=== PATIENT | female | born 1985 | race Caucasian/White ===

== ENCOUNTER 2016-06-30 15:50 | Emergency (ER) | payer SELFPAY ==
[~2016-06-30] VITALS: Ht 154.9 cm; Wt 171.0 kg
[~2016-06-30 15:50] MED LIST: ZOFR4TAB PO
[2016-06-30 15:53] VITALS: BP 157/100; PULSE 82; RESP 17; TEMP 98.3; O2SAT 97
[2016-06-30] MEDS ORDERED: SODIUM CHLOR 0.9% 1000 ML INJ 1,000 ML IV ONE (16:02)
[2016-06-30 16:07] VITALS: RESP 16; O2SAT 98
--- NOTE | 2016-06-30 16:08 | PD ---
HPI Chief Complaint: Headache Time Seen by Provider: 16:02 Travel History International Travel<30 days: No Contact w/Intl Traveler<30days: No Traveled to known affect area: No History of Present Illness HPI 31-year-old female presents to the ER today with 1 week history of headaches, cough, cold symptoms, nausea, and diarrhea. She denies any neck stiffness, fevers, abdominal pains, or any other issues. She states that there is something going around work, multiple coworkers had similar symptoms. Patient does not know any exacerbating or alleviating factors for headaches but states that her headache is currently an 8 out of 10. Modifying Factors: None Associated Signs & Symptoms: Headaches, nausea, diarrhea, cold symptoms, cough Risk Factors: Sick contacts PFSH Past Medical History Heart Rhythm Problems: No Cardiovascular Problems: No Diabetes: No Diminished Hearing: No Gastrointestinal Disorders: Yes ("BAD GALLBLADDER" ) Headaches: Yes Musculoskeletal: Yes Neurologic: No Reproductive: Yes (MASTITIS: AGE 17) Respiratory: No Immunizations Current: No Migraines: Yes ?: Not : 0 Para: 0 Past Surgical History Cholecystectomy: Yes Oral Surgery: Yes (AGE 10) Other Surgery: No Social History Alcohol Use: Yes (Occ.) Tobacco Use: Yes (1/2 PPD) Substance Use: No Allergies-Medications (Allergen,Severity, Reaction): Coded Allergies: No Known Allergies (Verified , 06/30/16) Reported Meds & Prescriptions Reported Meds & Active Scripts Active No Active Prescriptions or Reported Medications Review of Systems Except as stated in HPI: all other systems reviewed are Neg Physical Exam Narrative GENERAL: Well-nourished, well-developed obese young white female patient in no acute distress. Awake, alert, oriented 3. Sitting and related without issues. SKIN: Warm and dry. HEAD: Normocephalic. EYES: No scleral icterus. No injection or drainage. NECK: Supple, trachea midline. CARDIOVASCULAR: Regular rate and rhythm without murmurs, gallops, or rubs. RESPIRATORY: Breath sounds equal bilaterally. No accessory muscle use. GASTROINTESTINAL: Abdomen soft, non-tender, nondistended. MUSCULOSKELETAL: No cyanosis, or edema. BACK: Nontender without obvious deformity. No CVA tenderness. Data Data Last Documented VS Vital Signs Date Time Temp Pulse Resp B/P Pulse Ox O2 Delivery O2 Flow Rate FiO2 06/30/16 16:30 66 16 138/75 99 Room Air 2/11/17 15:53 98.3 Orders Complete Blood Count With Diff (06/30/16 16:02) Comprehensive Metabolic Panel (06/30/16 16:02) Ecg Monitoring (06/30/16 16:02) Iv Access Insert/Monitor (06/30/16 16:02) Oximetry (06/30/16 16:02) Sodium Chloride 0.9% Flush (Ns Flush) (06/30/16 16:15) Ketorolac Inj (Toradol Inj) (06/30/16 16:15) Diphenhydramine Inj (Benadryl Inj) (06/30/16 16:15) Metoclopramide Inj (Reglan Inj) (06/30/16 16:15) Sodium Chlor 0.9% 1000 Ml Inj (Ns 1000 M (06/30/16 16:02) Influenzae A/B Antigen (06/30/16 16:02) Ed Urine Pregnancytest Poc (06/30/16 16:02) Labs Laboratory Tests Test 06/30/16 16:20 White Blood Count 10.8 TH/MM3 Red Blood Count 4.99 MIL/MM3 Hemoglobin 13.6 GM/DL Hematocrit 41.5 % Mean Corpuscular Volume 83.1 FL Mean Corpuscular Hemoglobin 27.4 PG Mean Corpuscular Hemoglobin 32.9 % Concent Red Cell Distribution Width 12.5 % Platelet Count 401 TH/MM3 Mean Platelet Volume 7.3 FL Neutrophils (%) (Auto) 62.3 % Lymphocytes (%) (Auto) 26.1 % Monocytes (%) (Auto) 5.4 % Eosinophils (%) (Auto) 5.0 % Basophils (%) (Auto) 1.2 % Neutrophils # (Auto) 6.8 TH/MM3 Lymphocytes # (Auto) 2.8 TH/MM3 Monocytes # (Auto) 0.6 TH/MM3 Eosinophils # (Auto) 0.5 TH/MM3 Basophils # (Auto) 0.1 TH/MM3 CBC Comment DIFF FINAL Differential Comment Sodium Level 142 MEQ/L Potassium Level 4.2 MEQ/L Chloride Level 109 MEQ/L Carbon Dioxide Level 24.0 MEQ/L Anion Gap 9 MEQ/L Blood Urea Nitrogen 8 MG/DL Creatinine 0.72 MG/DL Estimat Glomerular Filtration 96 ML/MIN Rate Random Glucose 129 MG/DL Calcium Level 8.6 MG/DL Total Bilirubin 0.4 MG/DL Aspartate Amino Transf 28 U/L (AST/SGOT) Alanine Aminotransferase 20 U/L (ALT/SGPT) Alkaline Phosphatase 61 U/L Total Protein 7.1 GM/DL Albumin 3.1 GM/DL MDM Medical Decision Making Medical Screen Exam Complete: Yes Emergency Medical Condition: Yes Medical Record Reviewed: Yes Interpretation(s) Laboratory Tests Test 06/30/16 16:20 Eosinophils (%) (Auto) 5.0 % (0.0-4.0) Eosinophils # (Auto) 0.5 TH/MM3 (0-0.4) Chloride Level 109 MEQ/L (98-107) Random Glucose 129 MG/DL (74-106) Albumin 3.1 GM/DL (3.4-5.0) Differential Diagnosis Headache, nausea, diarrhea, cough, cold symptomsviral syndrome/viral gastroenteritis versus migraine headaches versus dehydration versus metabolic issues versus meningitis Narrative Course Patient does not have any meningeal signs and I'm not concerned about meningitis in this case. IV fluids and anti-medics were initiated in the ER. Lab work did not indicate any significant dehydration or metabolic issues. She is influenza-negative. She has several sick contacts at work and I suspect that there may be an underlying viral syndrome which is being passed around at work. On reevaluation at 4:50 PM, patient is feeling improved and my plan would be at this point to release the patient with further symptomatic treatment for headache and nausea. Return for any worsening in symptoms as necessary. The plan has been discussed with the patient and she states understanding. Diagnosis Primary Impression: Viral syndrome Med/Other Pt SpecificInfo: Prescription(s) given Scripts Ondansetron Odt (Zofran Odt)4 Mg Tab4 Mg SL Q6HR PRN (Nausea/Vomiting) #5 TAB Ref 0 Prov:Chayo Beard MD 06/30/16 Ibuprofen (Motrin Ib)200 Mg Feq240 Mg PO Q6H PRN (PAIN SCALE 1 TO 10) #20 TAB Ref 0 Prov:Chayo Beard MD 06/30/16 Disposition: 01 DISCHARGE HOME Condition: Stable Chayo Beard MD Jun 30, 2016 16:08
[2016-06-30] MEDS ORDERED: SODIUM CHLORIDE 0.9% FLUSH 5 ML FLUSH IVF PRN (16:15)
[2016-06-30] MEDS ORDERED: diphenhydrAMINE HCL 50 MG/ML VIAL IVP ONE (16:15)
[2016-06-30] MEDS ORDERED: KETOROLAC TROMETHAMINE 30 MG/ML (IVP) VIAL IVP ONE (16:15)
[2016-06-30] MEDS ORDERED: METOCLOPRAMIDE HCL 10 MG/2 ML VIAL IVP ONE (16:15)
[2016-06-30 16:25] LABS: AUTOMATED NEUTROPHIL # 6.8 TH/MM3 (1.8-7.7); BASOPHIL # 0.1 TH/MM3 (0-0.2); BASOPHIL % 1.2 % (0.0-2.0); EOSINOPHIL # 0.5 TH/MM3 (0-0.4); HEMATOCRIT 41.5 % (35.0-46.0); LYMPH % 26.1 % (9.0-44.0); LYMPHOCYTE # 2.8 TH/MM3 (1.0-4.8); MEAN CELL VOLUME 83.1 FL (80.0-100.0); MEAN CORPUSCULAR HEMOGLOBIN 27.4 PG (27.0-34.0); MEAN CORPUSCULAR HGB CONC 32.9 % (32.0-36.0); MONO % 5.4 % (0.0-8.0); NEUT % 62.3 % (16.0-70.0); PLATELET COUNT 401 TH/MM3 (150-450); RED BLOOD COUNT 4.99 MIL/MM3 (4.00-5.30); RED CELL DISTRIBUTION WIDTH 12.5 % (11.6-17.2); WHITE BLOOD COUNT 10.8 TH/MM3 (4.0-11.0)
[2016-06-30 16:30] VITALS: BP 138/75; PULSE 66; RESP 16; O2SAT 99
[2016-06-30 16:38] LABS: HEMO FLAGS DIFF FINAL
[2016-06-30 16:41] LABS: CHLORIDE 109 MEQ/L (98-107); SODIUM (NA) 142 MEQ/L (136-145)
[2016-06-30 16:44] LABS: ANION GAP 9 MEQ/L (5-15)
[2016-06-30 16:45] LABS: BLOOD UREA NITROGEN 8 MG/DL (7-18)
[2016-06-30 16:47] LABS: ALT (GPT) 20 U/L (10-53)
[2016-06-30 16:48] LABS: AST (GOT) 28 U/L (15-37); GLOMERULAR FILTRATION RATE 96 ML/MIN (>89)
[2016-06-30 16:49] LABS: POTASSIUM 4.2 MEQ/L (3.5-5.1); TOTAL BILIRUBIN ADULT 0.4 MG/DL (0.2-1.0)
[2016-06-30 16:50] LABS: ALKALINE PHOSPHATASE 61 U/L (45-117)
[2016-06-30] MEDS ORDERED: MOTR200T4 PO (16:58)
[2016-06-30] MEDS ORDERED: ZOFR4TAB3 SL (16:58)
[2016-06-30 17:33] VITALS: RESP 16
[2016-06-30 17:34] VITALS: BP 130/77
== END 2016-06-30 17:38 | disposition home or self-care (01) ==
LOC: PHED 15:50
DX: B34.9 Viral infection, unspecified (principal); R51 Headache; R11.0 Nausea; R19.7 Diarrhea, unspecified; R05 Cough; F17.200 Nicotine dependence, unspecified, uncomplicated; Z87.19 Personal history of other diseases of the digestive system; Z86.69 Personal history of other diseases of the nervous system and sense organs
CPT/HCPCS: 80053; 84703; 85025; 87804; 96361; 96374; 96375; 99284; J1200; J1885; J2765; J7030

== ENCOUNTER 2016-07-25 18:18 | Emergency (ER) | payer OTHER ==
[~2016-07-25] VITALS: Ht 154.9 cm; Wt 173.5 kg
[~2016-07-25 18:18] MED LIST changes: +MOTR200T4 PO; -ZOFR4TAB PO; +ZOFR4TAB3 SL
[2016-07-25 18:33] VITALS: BP 150/99; PULSE 82; RESP 18; TEMP 98.8; O2SAT 97
[2016-07-25] MEDS ORDERED: SODIUM CHLOR 0.9% 1000 ML INJ 1,000 ML IV SCH (18:57)
--- NOTE | 2016-07-25 18:59 | PD ---
HPI Chief Complaint: GI Complaint Time Seen by Provider: 18:53 Travel History International Travel<30 days: No Contact w/Intl Traveler<30days: No Traveled to known affect area: No History of Present Illness HPI 31-year-old female here for evaluation of abdominal pain, nausea, vomiting, and cough. The patient reports having nausea for the last month and a half. She tells me that she cannot be as she is abstinent. Abdominal pain is epigastric. Over the last week she has been more nauseous and has had vomiting and diarrhea. Earlier today she had a fever which resolved after taking a shower. Cough is productive of greenish sputum. History of cholecystectomy. No other abdominal surgeries. PFSH Past Medical History Heart Rhythm Problems: No Cardiovascular Problems: No Diabetes: No Diminished Hearing: No Gastrointestinal Disorders: Yes ("BAD GALLBLADDER" ) Headaches: Yes Musculoskeletal: Yes Neurologic: No Reproductive: Yes (MASTITIS: AGE 17) Respiratory: No Immunizations Current: No Migraines: Yes ?: Not : 0 Para: 0 Past Surgical History Cholecystectomy: Yes Oral Surgery: Yes (AGE 10) Other Surgery: No Social History Alcohol Use: Yes (Occ. wine) Tobacco Use: Yes (1/2 PPD) Substance Use: No Allergies-Medications (Allergen,Severity, Reaction): Coded Allergies: No Known Allergies (Verified , 07/25/16) Reported Meds & Prescriptions Reported Meds & Active Scripts Active Review of Systems Except as stated in HPI: all other systems reviewed are Neg Physical Exam Narrative GENERAL: Well-developed, well-nourished, overweight, comfortable, no acute distress. SKIN: Warm and dry. No rash. HEAD: Atraumatic. Normocephalic. EYES: Pupils equal and round. No scleral icterus. No injection or drainage. ENT: Mucous membranes pink and moist. CARDIOVASCULAR: Regular rate and rhythm. RESPIRATORY: No accessory muscle use. Clear to auscultation. Breath sounds equal bilaterally. GASTROINTESTINAL: Abdomen soft, non-tender, nondistended. MUSCULOSKELETAL: No obvious deformities. No clubbing. No cyanosis. No edema. NEUROLOGICAL: Awake and alert. No obvious cranial nerve deficits. Motor grossly within normal limits. Normal speech. PSYCHIATRIC: Appropriate mood and affect; insight and judgment normal. Data Data Last Documented VS Vital Signs Date Time Temp Pulse Resp B/P Pulse Ox O2 Delivery O2 Flow Rate FiO2 07/25/16 19:45 99 Room Air 07/25/16 18:33 98.8 82 18 150/99 Orders Beta Hcg (Quant/Titer) (07/25/16 18:57) Complete Blood Count With Diff (07/25/16 18:57) Comprehensive Metabolic Panel (07/25/16 18:57) Lipase (07/25/16 18:57) Urinalysis - C+S If Indicated (07/25/16 18:57) Iv Access Insert/Monitor (07/25/16 18:57) Ecg Monitoring (07/25/16 18:57) Oximetry (07/25/16 18:57) Ondansetron Inj (Zofran Inj) (07/25/16 19:00) Pantoprazole Inj (Protonix Inj) (07/25/16 19:00) Sodium Chlor 0.9% 1000 Ml Inj (Ns 1000 M (07/25/16 18:57) Sodium Chloride 0.9% Flush (Ns Flush) (07/25/16 19:00) Al-Mag Hy-Si 40-40-4 Mg/Ml Liq (Mag-Al P (07/25/16 19:00) Lidocaine 2% Viscous (Xylocaine 2% Visco (07/25/16 19:00) Influenzae A/B Antigen (07/25/16 18:59) Chest, Single Ap (07/25/16 ) Labs Laboratory Tests Test 07/25/16 07/25/16 19:14 19:40 White Blood Count 10.5 TH/MM3 Red Blood Count 5.17 MIL/MM3 Hemoglobin 14.2 GM/DL Hematocrit 42.8 % Mean Corpuscular Volume 82.8 FL Mean Corpuscular Hemoglobin 27.5 PG Mean Corpuscular Hemoglobin 33.2 % Concent Red Cell Distribution Width 12.4 % Platelet Count 376 TH/MM3 Mean Platelet Volume 7.3 FL Neutrophils (%) (Auto) 62.1 % Lymphocytes (%) (Auto) 23.3 % Monocytes (%) (Auto) 6.4 % Eosinophils (%) (Auto) 5.0 % Basophils (%) (Auto) 3.2 % Neutrophils # (Auto) 6.6 TH/MM3 Lymphocytes # (Auto) 2.4 TH/MM3 Monocytes # (Auto) 0.7 TH/MM3 Eosinophils # (Auto) 0.5 TH/MM3 Basophils # (Auto) 0.3 TH/MM3 CBC Comment DIFF FINAL Differential Comment Sodium Level 141 MEQ/L Potassium Level 3.7 MEQ/L Chloride Level 108 MEQ/L Carbon Dioxide Level 25.4 MEQ/L Anion Gap 8 MEQ/L Blood Urea Nitrogen 9 MG/DL Creatinine 0.67 MG/DL Estimat Glomerular Filtration 104 ML/MIN Rate Random Glucose 78 MG/DL Calcium Level 8.6 MG/DL Total Bilirubin 0.3 MG/DL Aspartate Amino Transf 14 U/L (AST/SGOT) Alanine Aminotransferase 23 U/L (ALT/SGPT) Alkaline Phosphatase 60 U/L Total Protein 7.3 GM/DL Albumin 3.2 GM/DL Lipase 97 U/L Human Chorionic Gonadotropin, LESS THAN 1 Quant MIU/ML Urine Color YELLOW Urine Turbidity CLEAR Urine pH 6.5 Urine Specific [place] 1.017 Urine Protein NEG mg/dL Urine Glucose (UA) NEG mg/dL Urine Ketones NEG mg/dL Urine Occult Blood MOD Urine Nitrite NEG Urine Bilirubin NEG Urine Leukocyte Esterase NEG Urine RBC 0-3 /hpf Urine WBC 6-8 /hpf Urine Squamous Epithelial 0-5 /hpf Cells Microscopic Urinalysis Comment CULT NOT INDICATED MDM Medical Decision Making Medical Screen Exam Complete: Yes Emergency Medical Condition: Yes Medical Record Reviewed: Yes Differential Diagnosis Gastroenteritis, viral illness, URI, influenza, dehydration, gastritis, peptic ulcer disease, pancreatitis Narrative Course Vital signs show heart rate 82, blood pressure 150/99, pulse ox 99% on room air , oral temp of 98.8F. CBC is unremarkable. CMP is unremarkable. Lipase is 97. Beta hCG is negative. UA not suggestive UTI. Influenza negative. Chest x-ray shows no acute disease. The patient was given IV Zofran and a liter of normal saline IV and reports much better. Her nausea has significantly improved. Her abdominal exam is benign. I believe she is suffering from a viral illness/gastroenteritis/URI. She is stable for discharge home with outpatient follow-up with a primary care physician this week. She was informed on when to return to the emergency department. She verbalizes understanding and agreement with plan. Diagnosis Primary Impression: Gastroenteritis Additional Impression: Viral syndrome Referrals: Primary Care Physician 3 days Additional Instructions: Follow-up with a primary care physician this week. Return to the emergency department for worsening symptoms or any other concerns. Scripts Ondansetron Odt (Zofran Odt)4 Mg Tab4 Mg SL Q8HR PRN (Nausea/Vomiting) #30 TAB Ref 0 Prov:Arnold Ann MD 07/25/16 Disposition: 01 DISCHARGE HOME Condition: Stable Arnold Ann MD Jul 25, 2016 18:59
[2016-07-25] MEDS ORDERED: PANTOPRAZOLE SODIUM 40 MG VIAL IVP ONE (19:00)
[2016-07-25] MEDS ORDERED: SODIUM CHLORIDE 0.9% FLUSH 5 ML FLUSH IVF PRN (19:00)
[2016-07-25] MEDS ORDERED: ONDANSETRON HCL 4 MG/2 ML VIAL IVP ONE (19:00)
[2016-07-25] MEDS ORDERED: ALUMINUM/MAGNESIUM/SIMETH 30 ML CUP PO ONE (19:00)
[2016-07-25] MEDS ORDERED: LIDOCAINE VISCOUS 2% SOLN 15 ML UDC PO ONE (19:00)
[2016-07-25 19:24] LABS: AUTOMATED NEUTROPHIL # 6.6 TH/MM3 (1.8-7.7); BASOPHIL # 0.3 TH/MM3 (0-0.2); BASOPHIL % 3.2 % (0.0-2.0); EOSINOPHIL # 0.5 TH/MM3 (0-0.4); HEMATOCRIT 42.8 % (35.0-46.0); HEMO FLAGS DIFF FINAL; LYMPH % 23.3 % (9.0-44.0); LYMPHOCYTE # 2.4 TH/MM3 (1.0-4.8); MEAN CELL VOLUME 82.8 FL (80.0-100.0); MEAN CORPUSCULAR HEMOGLOBIN 27.5 PG (27.0-34.0); MEAN CORPUSCULAR HGB CONC 33.2 % (32.0-36.0); MONO % 6.4 % (0.0-8.0); NEUT % 62.1 % (16.0-70.0); PLATELET COUNT 376 TH/MM3 (150-450); RED BLOOD COUNT 5.17 MIL/MM3 (4.00-5.30); RED CELL DISTRIBUTION WIDTH 12.4 % (11.6-17.2); WHITE BLOOD COUNT 10.5 TH/MM3 (4.0-11.0)
[2016-07-25 19:34] LABS: CHLORIDE 108 MEQ/L (98-107); POTASSIUM 3.7 MEQ/L (3.5-5.1); SODIUM (NA) 141 MEQ/L (136-145)
[2016-07-25 19:38] LABS: ANION GAP 8 MEQ/L (5-15); BICARBONATE 25.4 MEQ/L (21.0-32.0); BLOOD UREA NITROGEN 9 MG/DL (7-18)
--- NOTE | 2016-07-25 19:38 | RADHPO ---
EXAM DATE/TIME: 07/25/2016 19:21 [facility] COMPARISON: CHEST PA & LAT, August 20, 2015, 15:18. INDICATIONS : Cough, chest congestion starting today MEDICAL HISTORY : None. SURGICAL HISTORY : None. ENCOUNTER: Initial ACUITY: 1 day PAIN SCORE: 0/10 LOCATION: Bilateral chest FINDINGS: A single view of the chest demonstrates the lungs to be symmetrically aerated without evidence of mas s, infiltrate or effusion. The cardiomediastinal contours are unremarkable. Osseous structures are intact. CONCLUSION: No acute disease. Jj Earl MD on July 25, 2016 at 19:36 Board Certified Radiologist. This report was verified electronically.
[2016-07-25 19:41] LABS: ALT (GPT) 23 U/L (10-53); AST (GOT) 14 U/L (15-37); GLOMERULAR FILTRATION RATE 104 ML/MIN (>89)
[2016-07-25 19:43] LABS: TOTAL BILIRUBIN ADULT 0.3 MG/DL (0.2-1.0)
[2016-07-25 19:44] LABS: ALKALINE PHOSPHATASE 60 U/L (45-117)
[2016-07-25 19:45] VITALS: BP 137/83; PULSE 84; RESP 18; O2SAT 99
[2016-07-25 19:46] LABS: BETA HCG QUANT LESS THAN 1 MIU/ML (0-5)
[2016-07-25 20:18] LABS: GLUCOSE,URINE NEG (NEG); KETONE, URINE NEG (NEG); NITRITE,URINE NEG (NEG); PH, URINE 6.5 (5.0-8.5)
[2016-07-25 20:27] LABS: BLOOD, URINE MOD (NEG)
[2016-07-25 20:29] LABS: COMMENT (UR) CULT NOT INDICATED; CULTURE IF INDICATED CULT NOT INDICATED; RBC, URINE 0-3 /hpf (0-3); SQUAMOUS EPITHELIAL CELL URINE 0-5 /hpf (0-5); URINE COLOR YELLOW (YELLW/STRAW)
[2016-07-25] MEDS ORDERED: ZOFR4TAB3 SL (20:35)
[2016-07-25 20:45] VITALS: BP 140/84; PULSE 73; RESP 18; O2SAT 100
[2016-07-25 21:19] VITALS: TEMP 98
== END 2016-07-25 21:20 | disposition home or self-care (01) ==
LOC: PHED 18:18
DX: K52.9 Noninfective gastroenteritis and colitis, unspecified (principal); B34.9 Viral infection, unspecified; R05 Cough; F17.210 Nicotine dependence, cigarettes, uncomplicated
CPT/HCPCS: 71010; 80053; 81001; 83690; 84702; 85025; 87804; 96361; 96374; 96375; 99284; C9113; J2405; J7030

== ENCOUNTER 2016-08-17 07:40 | Emergency (ER) | payer OTHER ==
[~2016-08-17] VITALS: Ht 154.9 cm; Wt 176.0 kg
[~2016-08-17 07:40] MED LIST changes: -MOTR200T4 PO
[2016-08-17 07:43] VITALS: BP 166/104; PULSE 82; RESP 20; TEMP 97.8; O2SAT 99
--- NOTE | 2016-08-17 08:05 | PD ---
HPI Chief Complaint: Cold / Flu Symptoms Time Seen by Provider: 07:48 Travel History International Travel<30 days: No Contact w/Intl Traveler<30days: No Traveled to known affect area: No History of Present Illness HPI The patient was seen and examined in the presence of the nurse. This patient complains of cough primarily. Has had some runny nose congestion and fever. Symptoms severity is mild. No alleviating factors. PFSH Past Medical History Heart Rhythm Problems: No Cardiovascular Problems: No Diabetes: No Diminished Hearing: No Gastrointestinal Disorders: Yes ("BAD GALLBLADDER" ) Headaches: Yes Musculoskeletal: Yes Neurologic: No Reproductive: Yes (MASTITIS: AGE 17) Respiratory: No Immunizations Current: No Migraines: Yes ?: Not LMP: 08/12/16 : 0 Para: 0 Past Surgical History Cholecystectomy: Yes Oral Surgery: Yes (AGE 10) Other Surgery: No Social History Alcohol Use: Yes (Rarely) Tobacco Use: Yes (1/2 PPD) Substance Use: No Allergies-Medications (Allergen,Severity, Reaction): Coded Allergies: No Known Allergies (Verified , 07/25/16) Reported Meds & Prescriptions Reported Meds & Active Scripts Active Zofran Odt (Ondansetron Odt) 4 Mg Tab 4 Mg SL Q8HR PRN Review of Systems General / Constitutional: Positive: Fever HENT: No: Lightheadedness Respiratory: Positive: Cough Gastrointestinal: No: Diarrhea Physical Exam Narrative RESPIRATORY: Respiratory effort unlabored, no retractions or use of accessory muscles. Breath sounds are clear and symmetric. CARDIOVASCULAR: Regular rate and rhythm without murmur. Extremities showed no edema or varicosities. NECK: Symmetrical appearance, midline trachea. No mass or crepitus. Thyroid without enlargement, tenderness, or mass. Data Data Last Documented VS Vital Signs Date Time Temp Pulse Resp B/P Pulse Ox O2 Delivery O2 Flow Rate FiO2 08/17/16 07:43 97.8 82 20 166/104 99 MDM Medical Decision Making Medical Screen Exam Complete: Yes Emergency Medical Condition: Yes Medical Record Reviewed: Yes Differential Diagnosis Flu syndrome, bronchitis, pneumonia Narrative Course I have reviewed the patient's electronic medical record. Patient was seen here 3 weeks ago and had extensive workup which was negative Presentation today is most consistent with acute viral bronchitis. Discussed smoking cessation and supportive care. No indication for antibiotics. Gradual resolution is expected Diagnosis Primary Impression: Acute viral bronchitis Additional Instructions: The patient was advised to follow up with their physician and return if they worsen. Med/Other Pt SpecificInfo: Other Disposition: 01 DISCHARGE HOME Condition: Stable Manny Moore MD Aug 17, 2016 08:05
== END 2016-08-17 08:17 | disposition home or self-care (01) ==
LOC: PHED 07:40
DX: J20.8 Acute bronchitis due to other specified organisms (principal)
CPT/HCPCS: 99283

== ENCOUNTER 2016-09-04 19:45 | Emergency (ER) | payer OTHER ==
[~2016-09-04] VITALS: Ht 180.3 cm; Wt 174.9 kg
[2016-09-04 20:42] VITALS: BP 191/96; PULSE 80; RESP 16; TEMP 98.1; O2SAT 98
--- NOTE | 2016-09-04 20:58 | PD ---
HPI Chief Complaint: Injury Time Seen by Provider: 20:52 Travel History International Travel<30 days: No Contact w/Intl Traveler<30days: No Traveled to known affect area: No History of Present Illness HPI This 31-year-old female says she fell yesterday. Says she rolled over on her ankle and hurt her knee. Nothing else is hurting her. The injuries are all on the right side. She has been able to walk but has been quite painful for her. PFSH Past Medical History Medical History: Denies Significant Hx Heart Rhythm Problems: No Cardiovascular Problems: No Diabetes: No Diminished Hearing: No Gastrointestinal Disorders: Yes ("BAD GALLBLADDER" ) Headaches: Yes Musculoskeletal: Yes Neurologic: No Reproductive: Yes (MASTITIS: AGE 17) Respiratory: No Immunizations Current: No Migraines: Yes Influenza Vaccination: No ?: Not : 0 Para: 0 Past Surgical History Cholecystectomy: Yes Oral Surgery: Yes (AGE 10) Other Surgery: No Social History Alcohol Use: Yes (Rarely) Tobacco Use: Yes (1/2 PPD) Substance Use: No Allergies-Medications (Allergen,Severity, Reaction): Coded Allergies: No Known Allergies (Verified , 09/04/16) Reported Meds & Prescriptions Reported Meds & Active Scripts Active No Active Prescriptions or Reported Medications Review of Systems General / Constitutional: No: Fever, Chills Eyes: No: Diploplia, Blurred Vision HENT: No: Vertigo Cardiovascular: No: Chest Pain or Discomfort, Palpitations Respiratory: No: Cough, Shortness of Breath Gastrointestinal: No: Vomiting, Abdominal Pain Genitourinary: No: Urgency, Frequency Musculoskeletal: Positive: Myalgias, Pain Skin: No Rash, No Itching Neurologic: No: Weakness, Dizziness Psychiatric: No: Anxiety Hematologic/Lymphatic: No: Easy Bruising Physical Exam Narrative GENERAL: Obese female SKIN: Focused skin assessment warm/dry. HEAD: Atraumatic. Normocephalic. EYES: Pupils equal and round. No scleral icterus. No injection or drainage. ENT: No nasal bleeding or discharge. Mucous membranes pink and moist. NECK: Trachea midline. No JVD. MUSCULOSKELETAL: No obvious deformities. No clubbing. No cyanosis. No edema. There is some tenderness of the medial joint line of the right knee. She is able to flex and extend the knee but is painful for her. There is swelling and tenderness in the lateral aspect of the right ankle. Skin is intact NEUROLOGICAL: Awake and alert. No obvious cranial nerve deficits. Motor grossly within normal limits. Normal speech. PSYCHIATRIC: Appropriate mood and affect; insight and judgment normal. Data Data Last Documented VS Vital Signs Date Time Temp Pulse Resp B/P Pulse Ox O2 Delivery O2 Flow Rate FiO2 09/04/16 20:42 98.1 80 16 191/96 98 Orders Ankle, Complete ([id number]) (09/04/16 20:52) Knee, Complete (4vws) (09/04/16 20:52) Ondansetron Odt (Zofran Odt) (09/04/16 21:30) Acetamin-Hydrocod 325-5 Mg ([place] 5-325 (09/04/16 21:30) MDM Medical Decision Making Medical Screen Exam Complete: Yes Emergency Medical Condition: Yes Medical Record Reviewed: Yes Differential Diagnosis Differential includes contusion knee, fracture knee ankle sprain, , fracture Narrative Course X-ray of the right ankle is negative for fracture. X-ray of the knee is also negative for fracture. Diagnosis Primary Impression: Ankle sprain Qualified Code: S93.431A - Sprain of tibiofibular ligament of right ankle, initial encounter Additional Impression: Right knee sprain Qualified Code: S83.411A - Sprain of medial collateral ligament of right knee , initial encounter Scripts Ibuprofen 600 Mg [id number] Mg PO QID #30 TAB Ref 0 Prov:Yimi Caicedo MD 09/04/16 Disposition: 01 DISCHARGE HOME Condition: Stable Yimi Caicedo MD Sep 04, 2016 20:58
[2016-09-04] MEDS ORDERED: ONDANSETRON ODT 4 MG TAB PO ONE (21:30)
[2016-09-04] MEDS ORDERED: ACETAMINOPHEN/HYDROcodone 325 MG/5 MG TAB PO ONE (21:30)
[2016-09-04] MEDS ORDERED: IBUP-232 PO (22:07)
--- NOTE | 2016-09-04 22:26 | RADHPO ---
EXAM DATE/TIME: 09/04/2016 21:38 [facility] COMPARISON: No previous studies available for comparison. INDICATIONS : Right ankle pain post fall. MEDICAL HISTORY : None. SURGICAL HISTORY : None. ENCOUNTER: Initial ACUITY: 2 days PAIN SCORE: 6/10 LOCATION: Right ankle. FINDINGS: Three view exam was performed of the right ankle. The bony structures are in normal alignment. No e vidence of fracture, or dislocation. The ankle mortise is intact. No radiopaque foreign bodies are s een. Bony mineralization is normal. CONCLUSION: 1. No acute findings. Kole Gonzales MD on September 04, 2016 at 22:23 Board Certified Radiologist. This report was verified electronically.
--- NOTE | 2016-09-04 22:27 | RADHPO ---
EXAM DATE/TIME: 09/04/2016 21:45 [facility] COMPARISON: KNEE RIGHT COMPLETE (4VWS), June 14, 2013, 5:09. INDICATIONS : Right knee pain post fall. MEDICAL HISTORY : None. SURGICAL HISTORY : None. ENCOUNTER: Initial ACUITY: 2 days PAIN SCORE: 6/10 LOCATION: Right knee. FINDINGS: Four view examination of the right knee demonstrates no evidence of fracture or dislocation. Bony mi neralization is normal. The articular surfaces are intact. The suprapatellar soft tissues have a no rmal configuration. CONCLUSION: 1. No acute findings. Kole Gonzales MD on September 04, 2016 at 22:24 Board Certified Radiologist. This report was verified electronically.
== END 2016-09-04 22:44 | disposition home or self-care (01) ==
LOC: PHED 19:45 → PHEFT 22:44
DX: S93.431A Sprain of tibiofibular ligament of right ankle, initial encounter (principal); S83.411A Sprain of medial collateral ligament of right knee, initial encounter; F17.210 Nicotine dependence, cigarettes, uncomplicated; W19.XXXA Unspecified fall, initial encounter; Y93.9 Activity, unspecified; Y92.9 Unspecified place or not applicable; Y99.8 Other external cause status
CPT/HCPCS: 73564; 73610; 99283

== ENCOUNTER 2016-10-01 08:27 | Emergency (ER) | payer OTHER ==
[~2016-10-01] VITALS: Ht 154.9 cm; Wt 173.6 kg
[~2016-10-01 08:27] MED LIST changes: +IBUP-232 PO; -ZOFR4TAB3 SL
[2016-10-01 08:32] VITALS: BP 139/91; PULSE 104; RESP 20; TEMP 98.1; O2SAT 97
--- NOTE | 2016-10-01 08:55 | PD ---
HPI Chief Complaint: Abdominal Pain Time Seen by Provider: 08:35 Travel History International Travel<30 days: No Contact w/Intl Traveler<30days: No Traveled to known affect area: No History of Present Illness HPI 31-year-old female complains of epigastric abdominal pain and a mildly tender mass in the left occipital scalp. The epigastric pain is present for weeks at least. 3 days prior she saw her primary care provider who did a CT of the abdomen and pelvis and blood work which the patient has yet to learn the results of. She notes she is on Bactrim due to a "dirty" urinalysis from a couple weeks ago. She's had no genitourinary symptoms. Today while at work she vomited. Associated symptoms include decreased appetite. She's had no trauma to the scalp. No fever. PFSH Past Medical History Heart Rhythm Problems: No Cardiovascular Problems: No Diabetes: No Diminished Hearing: No Gastrointestinal Disorders: Yes ("BAD GALLBLADDER" ) Headaches: Yes Musculoskeletal: Yes Neurologic: No Reproductive: Yes (MASTITIS: AGE 17) Respiratory: No Immunizations Current: No Migraines: Yes : 0 Para: 0 Past Surgical History Cholecystectomy: Yes Oral Surgery: Yes (AGE 10) Other Surgery: No Social History Alcohol Use: Yes (Rarely) Tobacco Use: Yes (1/2 PPD) Substance Use: No Allergies-Medications (Allergen,Severity, Reaction): Coded Allergies: No Known Allergies (Verified , 10/01/16) Reported Meds & Prescriptions Reported Meds & Active Scripts Active Zofran Odt (Ondansetron Odt) 4 Mg Tab 4 Mg SL Q8HR PRN Ibuprofen 600 Mg Tab 600 Mg PO QID Reported Sulfamethoxazole-Trimethoprim 400-80 Mg Tab 1 Tab PO BID Phenergan (Promethazine HCl) 25 Mg Tab 25 Mg PO Q6H PRN Omeprazole 20 Mg Tab 20 Mg PO DAILY Review of Systems Except as stated in HPI: all other systems reviewed are Neg Physical Exam Narrative GENERAL: 31-year-old female pleasant BMI 72 SKIN: Focused skin assessment warm/dry. HEAD: Atraumatic. Normocephalic. There is about a 1 cm nontender slightly mobile mass in the left lateral occipital scalp. EYES: Pupils equal and round. No scleral icterus. No injection or drainage. ENT: No nasal bleeding or discharge. Mucous membranes pink and moist. NECK: Trachea midline. No JVD. CARDIOVASCULAR: Regular rate and rhythm. No murmur appreciated. RESPIRATORY: No accessory muscle use. Clear to auscultation. Breath sounds equal bilaterally. GASTROINTESTINAL: Soft. No focal tenderness. MUSCULOSKELETAL: No obvious deformities. No clubbing. No cyanosis. No edema. NEUROLOGICAL: Awake and alert. No obvious cranial nerve deficits. Motor grossly within normal limits. Normal speech. PSYCHIATRIC: Appropriate mood and affect; insight and judgment normal. Data Data Last Documented VS Vital Signs Date Time Temp Pulse Resp B/P Pulse Ox O2 Delivery O2 Flow Rate FiO2 10/01/16 08:32 98.1 104 20 139/91 97 vs reviewed Orders Ondansetron Odt (Zofran Odt) (10/01/16 09:00) MDM Medical Decision Making Medical Screen Exam Complete: Yes Emergency Medical Condition: Yes Medical Record Reviewed: Yes Differential Diagnosis Constipation, Gastritis, Acute Cholecystitis, Biliary Colic, Pancreatitis, OROPEZA , Hepatitis, Bowel Obstruction, Cystitis, Mesenteric Ischemia, AAA, Appendicitis , Renal Stone/Hydronephrosis, GERD, perforated viscous Narrative Course The scalp mass is nonspecific. The patient has blood work and CT abdomen and pelvis pending for the same complaint. After some time discussing everything with the patient she discloses having vomited at work thus prompting the visit. Zofran prescription. Patient is ready for discharge. Follow-up with primary care for results of workup performed 3 days ago. Diagnosis Primary Impression: Abdominal pain Qualified Code: R10.11 - Right upper quadrant abdominal pain Additional Impressions: Vomiting Qualified Code: R11.2 - Non-intractable vomiting with nausea, unspecified vomiting type Swelling, mass, or lump in head and neck Referrals: Primary Care Physician 2 days Additional Instructions: You have a choice when it comes to health care, and we are glad that you chose [email or web address]. Hopefully, we have met your expectations on today's visit. You are welcome to return to [email or web address] at any time, as we are committed to meeting the health care needs of our community. Med/Other Pt SpecificInfo: Prescription(s) given Scripts Ondansetron Odt (Zofran Odt)4 Mg Tab4 Mg SL Q8HR PRN (Nausea/Vomiting) #6 TAB Ref 0 Prov:Shane Morrell MD 10/01/16 Disposition: 01 DISCHARGE HOME Condition: Stable Shane Morrell MD October 01, 2016 08:55
[2016-10-01] MEDS ORDERED: ZOFR4TAB3 SL (08:56)
[2016-10-01] MEDS ORDERED: PROM25TA5 PO (08:56)
[2016-10-01] MEDS ORDERED: SULF400T PO (08:56)
[2016-10-01] MEDS ORDERED: OMEP20TA PO (08:56)
[2016-10-01] MEDS ORDERED: ONDANSETRON ODT 4 MG TAB PO ONE (09:00)
== END 2016-10-01 09:14 | disposition home or self-care (01) ==
LOC: PHED 08:27
DX: R10.11 Right upper quadrant pain (principal); R11.10 Vomiting, unspecified; R22.0 Localized swelling, mass and lump, head; F17.200 Nicotine dependence, unspecified, uncomplicated
CPT/HCPCS: 99283

== ENCOUNTER 2016-10-03 15:07 | Emergency (ER) | payer OTHER ==
[~2016-10-03] VITALS: Ht 154.9 cm; Wt 171.7 kg
[~2016-10-03 15:07] MED LIST changes: +OMEP20TA PO; +PROM25TA5 PO; +SULF400T PO; +ZOFR4TAB3 SL
[2016-10-03 15:12] VITALS: BP 145/83; PULSE 86; RESP 16; TEMP 98.3; O2SAT 97
[2016-10-03] MEDS ORDERED: HYDR-3580 PO (15:26)
[2016-10-03] MEDS ORDERED: AMOX875T2 PO (15:26)
[2016-10-03] MEDS ORDERED: predniSONE 10 MG TAB PO ONE (16:30)
[2016-10-03] MEDS ORDERED: RANITIDINE HCL SYRUP 150 MG/10 ML UDC PO ONE (16:30)
[2016-10-03] MEDS ORDERED: diphenhydrAMINE HCL 50 MG/ML VIAL IM ONE (16:30)
[2016-10-03] MEDS ORDERED: FAMOTIDINE 20 MG TAB PO ONE (16:45)
--- NOTE | 2016-10-03 16:45 | PD ---
HPI Chief Complaint: Skin Problem Time Seen by Provider: 16:36 Travel History International Travel<30 days: No Contact w/Intl Traveler<30days: No Traveled to known affect area: No History of Present Illness HPI 31-year-old female presents to the emergency room for evaluation of itchy rash that started this morning. Patient started taking Augmentin last night and woke up with a rash. It started on her chest and spread to her arms and has subsequently spread to the rest of her body. She denies shortness of breath or chest pain but reports mild sore throat especially on the left side. She is also taking Bactrim, promethazine, hydrocodone, and omeprazole for abdominal pain. States she has taken all his medications in the past with the exception of Bactrim. Patient was recently seen in the emergency room for abdominal pain at which time it was found that she has an enlarged liver. 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 Patient states she has taken Augmentin 1 month ago and had no issues. PFSH Past Medical History Heart Rhythm Problems: No Cardiovascular Problems: No Diabetes: No Diminished Hearing: No Gastrointestinal Disorders: Yes (ENLARGED LIVER ON ULTRASOUND 09/28/16) GERD: Yes Headaches: Yes Musculoskeletal: Yes Neurologic: No Reproductive: Yes (MASTITIS: AGE 17) Respiratory: No Immunizations Current: No Migraines: Yes ?: Not LMP: THREE WEEKS AGO : 0 Para: 0 Past Surgical History Cholecystectomy: Yes Oral Surgery: Yes (AGE 10) Other Surgery: No Social History Alcohol Use: Yes (Rarely) Tobacco Use: Yes (1/2 PPD) Substance Use: No Allergies-Medications (Allergen,Severity, Reaction): Coded Allergies: No Known Allergies (Verified , 10/03/16) Reported Meds & Prescriptions Reported Meds & Active Scripts Active Reported Hydrocodone-Acetaminophen 7.5-325 mg Tab 1 Tab PO Q6H PRN Amoxicillin-Clavulanate 875-125 mg Tab 875 Mg PO BID not for use in CrCl <30 mL/minute Sulfamethoxazole-Trimethoprim 400-80 Mg Tab 1 Tab PO BID Phenergan (Promethazine HCl) 25 Mg Tab 25 Mg PO Q6H PRN Omeprazole 20 Mg Tab 20 Mg PO DAILY Review of Systems Except as stated in HPI: all other systems reviewed are Neg Physical Exam Narrative GENERAL: Well-nourished, morbidly obese female in no acute distress. Afebrile. Ambulatory. SKIN: Focused skin assessment warm/dry. Generalized maculopapular, raised, circular plaques. HEAD: Normocephalic. EYES: No scleral icterus. No injection or drainage. ENT: Mucosa pink and moist. No erythema or exudates. No uvular edema. No uvular , palatal, or tonsillar deviation. Airway patent. Nasal turbinates appear normal without nasal blood, purulent drainage or septal hematoma. NECK: Supple, trachea midline. No JVD or lymphadenopathy. CARDIOVASCULAR: Regular rate and rhythm without murmurs, gallops, or rubs. RESPIRATORY: Breath sounds equal bilaterally. No accessory muscle use. No crackles, rales, wheezes, or rhonchi. Data Data Last Documented VS Vital Signs Date Time Temp Pulse Resp B/P Pulse Ox O2 Delivery O2 Flow Rate FiO2 10/03/16 15:12 98.3 86 16 145/83 97 Orders Diphenhydramine Inj (Benadryl Inj) (10/03/16 16:30) Ranitidine Liq (Zantac Liq) (10/03/16 16:30) Prednisone (Deltasone) (10/03/16 16:30) MDM Medical Decision Making Medical Screen Exam Complete: Yes Emergency Medical Condition: Yes Medical Record Reviewed: Yes Differential Diagnosis Urticaria versus allergic reaction versus drug reaction Narrative Course 31-year-old female presents to the emergency room for evaluation of itchy rash that started this morning. Physical exam reveals a generalized raised, erythematous, maculopapular rash. Airway patent. Lung sounds clear and equal bilaterally. Patient denies shortness breath or chest pain. Patient started Augmentin last night and has taken that medication in the past without difficulty. She started Bactrim one week ago and has no memory of taking that in the past. Likely delayed hypersensitivity to Bactrim. She was told to stop taking Bactrim. Given Pepcid, prednisone, and Benadryl in the emergency room and discharged with prescriptions for Zantac, prednisone, and Benadryl. Told to follow up with primary care physician or return to the emergency room for worsening symptoms. She understands and agrees to this plan. Diagnosis Primary Impression: Allergic urticaria Referrals: Primary Care Physician Patient Instructions: General Instructions, Urticaria (ED) Additional Instructions: Take Benadryl as directed, as needed for itchiness. Take Zantac as directed, as needed for itchiness. Take prednisone as directed, until gone. Stop taking Bactrim. Follow-up with primary care. Return for worsening symptoms. Disposition: 01 DISCHARGE HOME Condition: Stable Valeri Harmon October 03, 2016 16:45
[2016-10-03] MEDS ORDERED: BENA25TA3 PO (16:46)
[2016-10-03] MEDS ORDERED: PRED20 PO (16:46)
[2016-10-03] MEDS ORDERED: ZANT150T2 PO (16:46)
== END 2016-10-03 16:54 | disposition home or self-care (01) ==
LOC: PHEFT 15:07
DX: L50.0 Allergic urticaria (principal); F17.210 Nicotine dependence, cigarettes, uncomplicated
CPT/HCPCS: 96372; 99283; J1200; J7512

== ENCOUNTER 2016-11-12 14:50 | Emergency (ER) | payer OTHER ==
[~2016-11-12] VITALS: Ht 157.5 cm; Wt 173.8 kg
[~2016-11-12 14:50] MED LIST changes: +AMOX875T2 PO; +BENA25TA3 PO; +HYDR-3580 PO; -IBUP-232 PO; +PRED20 PO; +ZANT150T2 PO; -ZOFR4TAB3 SL
[2016-11-12 14:53] VITALS: BP 157/91; PULSE 57; RESP 20; TEMP 98.3; O2SAT 98
[2016-11-12] MEDS ORDERED: PROM25TA10 PO ×2 (15:12→15:44)
[2016-11-12] MEDS ORDERED: CIPR250T52 PO (15:44)
--- NOTE | 2016-11-12 15:46 | PD ---
HPI Chief Complaint: Abdominal Pain Time Seen by Provider: 14:58 Travel History International Travel<30 days: No Contact w/Intl Traveler<30days: No Traveled to known affect area: No History of Present Illness HPI 31-year-old female complains of nausea vomiting and diarrhea for one day. Last oral intake was a ham sandwich. She reports multiple people at work have been sick with gastrointestinal symptoms. She describes moderate epigastric abdominal pain as well as right upper quadrant pain. She had a cholecystectomy years ago. 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 She reports abdomen pelvis CT scan was performed 4 weeks ago revealing liver enlargement. She reports a fever as high as 102 at home. She's been taking Tylenol and Motrin at home with good effect. Phenergan was helpful at home. PFSH Past Medical History Heart Rhythm Problems: No Cardiovascular Problems: No Diabetes: No Diminished Hearing: No Gastrointestinal Disorders: Yes (Enlarged liver on US 09/28/16) GERD: Yes Headaches: Yes Musculoskeletal: Yes Neurologic: No Reproductive: Yes (Mastitis age 17 ) Respiratory: No Immunizations Current: No Migraines: Yes Tetanus Vaccination: > 5 Years Influenza Vaccination: No ?: Not LMP: 1 week ago : 0 Para: 0 Past Surgical History Cholecystectomy: Yes Oral Surgery: Yes (As child ) Other Surgery: No Social History Alcohol Use: No Tobacco Use: Yes (/2 PPD) Substance Use: No Allergies-Medications (Allergen,Severity, Reaction): Coded Allergies: Sulfa (Verified Allergy, Severe, Swelling, rash , 11/12/16) Reported Meds & Prescriptions Reported Meds & Active Scripts Active Cipro (Ciprofloxacin HCl) 250 Mg Tab 250 Mg PO BID 5 Days Phenergan (Promethazine HCl) 25 Mg Tablet 25 Mg PO Q6H PRN Review of Systems Except as stated in HPI: all other systems reviewed are Neg Physical Exam Narrative GENERAL: 31-year-old female pleasant well-nourished and developed SKIN: Focused skin assessment warm/dry. HEAD: Atraumatic. Normocephalic. EYES: Pupils equal and round. No scleral icterus. No injection or drainage. ENT: No nasal bleeding or discharge. Mucous membranes pink and moist. NECK: Trachea midline. No JVD. CARDIOVASCULAR: Regular rate and rhythm. No murmur appreciated. RESPIRATORY: No accessory muscle use. Clear to auscultation. Breath sounds equal bilaterally. GASTROINTESTINAL: Somewhat nonspecific secondary to habitus. Minimal nonspecific tenderness in the upper portion of the abdomen. MUSCULOSKELETAL: No obvious deformities. No clubbing. No cyanosis. No edema. NEUROLOGICAL: Awake and alert. No obvious cranial nerve deficits. Motor grossly within normal limits. Normal speech. PSYCHIATRIC: Appropriate mood and affect; insight and judgment normal. Data Data Last Documented VS Vital Signs Date Time Temp Pulse Resp B/P Pulse Ox O2 Delivery O2 Flow Rate FiO2 11/12/16 14:53 98.3 57 20 157/91 98 VS reviewed [facility] Medical Decision Making Medical Screen Exam Complete: Yes Emergency Medical Condition: Yes Differential Diagnosis Constipation, Gastritis, Acute Cholecystitis, Biliary Colic, Pancreatitis, OROPEZA , Hepatitis, Bowel Obstruction, Cystitis, Mesenteric Ischemia, AAA, Appendicitis , Renal Stone/Hydronephrosis, GERD, perforated viscous Narrative Course Overall the patient is very well-appearing. She requests a work note for a few days. Concern for a mild infectious diarrhea and/or viral gastroenteritis is present. We have discussed return precautions and the patient has verbalized understanding. Index suspicion for serious underlying pathology is reasonably safely low to defer extensive workup at this time and the patient is in agreement with this plan. Scripts as below. She follows with Dr Modi. Diagnosis Primary Impression: Nausea vomiting and diarrhea Referrals: Primary Care Physician 2 days Departure Forms: Tests/Procedures, Work Release Enter return to work date: Nov 16, 2016 Additional Instructions: You have a choice when it comes to health care, and we are glad that you chose [facility]. Hopefully, we have met your expectations on today's visit. You are welcome to return to [facility] at any time, as we are committed to meeting the health care needs of our community. Med/Other Pt SpecificInfo: Prescription(s) given Scripts Ciprofloxacin (Cipro)250 Mg [id number] Mg PO BID 5 Days Ref 0 Prov:Shane Morrell MD 11/12/16 Promethazine (Phenergan)25 Mg [id number] Mg PO Q6H PRN (NAUSEA OR VOMITING) #20 TAB Ref 0 Prov:Shane Morrell MD 11/12/16 Disposition: 01 DISCHARGE HOME Condition: Stable Shane Morrell MD Nov 12, 2016 15:46
[2016-11-12] MEDS ORDERED: CIPROFLOXACIN 250 MG TAB PO ONE (16:00)
[2016-11-12] MEDS ORDERED: PROMETHAZINE HCL 25 MG TAB PO ONE (16:00)
== END 2016-11-12 15:55 | disposition home or self-care (01) ==
LOC: PHED 14:50
DX: R11.2 Nausea with vomiting, unspecified (principal); R19.7 Diarrhea, unspecified
CPT/HCPCS: 99283; Q0169

== ENCOUNTER 2017-02-11 19:59 | Emergency (ER) | payer OTHER ==
[~2017-02-11] VITALS: Ht 154.9 cm; Wt 177.8 kg
[~2017-02-11 19:59] MED LIST changes: -AMOX875T2 PO; -BENA25TA3 PO; +CIPR250T52 PO; -HYDR-3580 PO; -OMEP20TA PO; -PRED20 PO; +PROM25TA10 PO; -PROM25TA5 PO; -SULF400T PO; -ZANT150T2 PO
[2017-02-11 20:07] VITALS: BP 179/85; PULSE 75; RESP 16; TEMP 98.5; O2SAT 99
--- NOTE | 2017-02-11 21:11 | PD ---
HPI Chief Complaint: GI Complaint Time Seen by Provider: 20:58 Travel History International Travel<30 days: No Contact w/Intl Traveler<30days: No Traveled to known affect area: No History of Present Illness HPI The patient is a 31-year-old female, frequent visitor to the emergency department for minor problems, who complains of myalgias, feeling tired, nausea , vomiting and diarrhea for the past 24 hours. She states she had a fever but 103.2 at home, here it is normal. She does not have abdominal pain but does have a generalized crampy discomfort. She has had a cholecystectomy but still has her appendix. She denies any blood in the stool. PFSH Past Medical History Heart Rhythm Problems: No Cardiovascular Problems: No Diabetes: No Diminished Hearing: No Gastrointestinal Disorders: Yes (Enlarged liver on US 09/28/16) GERD: Yes Headaches: Yes Musculoskeletal: Yes Neurologic: No Reproductive: Yes (Mastitis age 17 ) Respiratory: No Immunizations Current: No Migraines: Yes Influenza Vaccination: No ?: Not LMP: 02/09/17 : 0 Para: 0 Past Surgical History Cholecystectomy: Yes Oral Surgery: Yes (As child ) Other Surgery: No Social History Alcohol Use: Yes (VERY RARE) Tobacco Use: Yes (1/2 PPD) Substance Use: No Allergies-Medications (Allergen,Severity, Reaction): Coded Allergies: Sulfa (Sulfonamide Antibiotics) (Unverified Allergy, Severe, Swelling, rash , 01/01/17) Reported Meds & Prescriptions Reported Meds & Active Scripts Active Zofran (Ondansetron HCl) 8 Mg Tab 8 Mg PO TID Phenergan (Promethazine HCl) 25 Mg Tablet 25 Mg PO Q6H PRN Review of Systems Except as stated in HPI: all other systems reviewed are Neg Physical Exam Narrative GENERAL: The patient is alert, oriented 3, minimally dehydrated appearing, morbidly obese in minimal apparent distress with her abdominal cramping. SKIN: Focused skin assessment warm/dry. HEAD: Atraumatic. Normocephalic. EYES: Pupils equal and round. No scleral icterus. No injection or drainage. ENT: No nasal bleeding or discharge. Mucous membranes pink and moist. NECK: Trachea midline. No JVD. CARDIOVASCULAR: Regular rate and rhythm. No murmur appreciated. RESPIRATORY: No accessory muscle use. Clear to auscultation. Breath sounds equal bilaterally. GASTROINTESTINAL: Abdomen soft, non-tender, nondistended. Hepatic and splenic margins not palpable. MUSCULOSKELETAL: No obvious deformities. No clubbing. No cyanosis. No edema. NEUROLOGICAL: Awake and alert. No obvious cranial nerve deficits. Motor grossly within normal limits. Normal speech. PSYCHIATRIC: Appropriate mood and affect; insight and judgment normal. Data Data Last Documented VS Vital Signs Date Time Temp Pulse Resp B/P (MAP) Pulse Ox O2 Delivery O2 Flow Rate FiO2 02/11/17 20:25 16 02/11/17 20:07 98.5 75 179/85 (116) 99 Orders Orders Ondansetron Odt (Zofran Odt) (02/11/17 21:15) [facility] [place] Medical Decision Making Medical Screen Exam Complete: Yes Emergency Medical Condition: Yes Medical Record Reviewed: Yes Differential Diagnosis Viral gastroenteritis, bacterial enteritis, colitis, dehydration Narrative Course The patient appears to have minimal dehydration. She is alert and oriented 3. This appears to be a viral gastroenteritis. Plan: The patient be given Zofran 8 mg to take 3 times daily and is to drink clear liquids including Gatorade and Pedialyte. She needs to follow-up with her primary care physician. Diagnosis Primary Impression: Viral gastroenteritis Additional Instructions: Stay well-hydrated and drink any liquids. Pedialyte and Gatorade are the best. Follow-up with your primary care physician this week or early next week. Med/Other Pt SpecificInfo: Prescription(s) given Scripts Ondansetron (Zofran) 8 Mg Tab 8 MG PO TID for Nausea/Vomiting, #30 TAB 0 Refills Prov: Parth Garcias MD 02/11/17 Disposition: 01 DISCHARGE HOME Condition: Stable Parth Garcias MD Feb 11, 2017 21:11
[2017-02-11] MEDS ORDERED: ZOFR8TAB PO (21:13)
[2017-02-11] MEDS ORDERED: ONDANSETRON ODT 4 MG TAB PO ONE (21:15)
[2017-02-11 21:21] VITALS: BP 142/95; PULSE 85; RESP 16; O2SAT 99
== END 2017-02-11 21:30 | disposition home or self-care (01) ==
LOC: PHED 19:59
DX: A08.4 Viral intestinal infection, unspecified (principal); K21.9 Gastro-esophageal reflux disease without esophagitis; F17.210 Nicotine dependence, cigarettes, uncomplicated
CPT/HCPCS: 99283

== ENCOUNTER 2017-05-13 07:52 | Emergency (ER) | payer OTHER ==
[~2017-05-13] VITALS: Ht 154.9 cm; Wt 176.0 kg
[~2017-05-13 07:52] MED LIST changes: -CIPR250T52 PO; +ZOFR8TAB PO
[2017-05-13 07:56] VITALS: BP 183/109; PULSE 98; RESP 16; TEMP 98.4; O2SAT 98
--- NOTE | 2017-05-13 08:13 | PD ---
HPI Chief Complaint: Cold / Flu Symptoms Time Seen by Provider: 08:10 Travel History International Travel<30 days: No Contact w/Intl Traveler<30days: No Traveled to known affect area: No History of Present Illness HPI 32-year-old female patient with history of no significant past medical issues, presents to the ER today for 3 days history of cough, cold symptoms, ear pain, sore throat, and fevers to 102 last night. She denies any diarrhea, abdominal pains, vomiting, or any other symptoms. Modifying Factors: None Associated Signs & Symptoms: Cough, cold symptoms, sore throat, fevers, ear pain Risk Factors: None PFSH Past Medical History Heart Rhythm Problems: No Cardiovascular Problems: No Diabetes: No Diminished Hearing: No Gastrointestinal Disorders: Yes (Enlarged liver on US 09/28/16) GERD: Yes Headaches: Yes Musculoskeletal: Yes Neurologic: No Reproductive: Yes (Mastitis age 17 ) Respiratory: No Immunizations Current: No Migraines: Yes ?: Not LMP: 2 WEEKS : 0 Para: 0 Past Surgical History Cholecystectomy: Yes Oral Surgery: Yes (As child ) Other Surgery: No Social History Alcohol Use: Yes (VERY RARE) Tobacco Use: Yes (1/2 PPD) Substance Use: No Allergies-Medications (Allergen,Severity, Reaction): Coded Allergies: Sulfa (Sulfonamide Antibiotics) (Unverified Allergy, Severe, Swelling, rash , 05/13/17) Reported Meds & Prescriptions Reported Meds & Active Scripts Active Zofran (Ondansetron HCl) 8 Mg Tab 8 Mg PO TID Phenergan (Promethazine HCl) 25 Mg Tablet 25 Mg PO Q6H PRN Review of Systems Except as stated in HPI: all other systems reviewed are Neg Physical Exam Narrative GENERAL: Well-developed young female patient currently in no acute distress. Awake and oriented 3. SKIN: Focused skin assessment warm/dry. HEAD: Atraumatic. Normocephalic. EYES: Pupils equal and round. No scleral icterus. No injection or drainage. ENT: Mucosa pink and moist. Mild erythema with no significant exudates. No uvular edema. No uvular, palatal, or tonsillar deviation. Airway patent. Nasal turbinates appear normal without nasal blood, purulent drainage or septal hematoma. Small amount of erythema on the left septum. EARS: Bilateral pinnae and external canals appear within normal limits. Bilateral tympanic membranes without erythema, dullness or perforation. But there is notable bulging and clear fluid behind the left TM. NECK: Trachea midline. No JVD. Supple. CARDIOVASCULAR: Regular rate and rhythm. No murmur appreciated. RESPIRATORY: No accessory muscle use. Clear to auscultation. Breath sounds equal bilaterally. GASTROINTESTINAL: Abdomen soft, non-tender, nondistended. Hepatic and splenic margins not palpable. MUSCULOSKELETAL: No obvious deformities. No clubbing. No cyanosis. No edema. NEUROLOGICAL: Awake and alert. No obvious cranial nerve deficits. Motor grossly within normal limits. Normal speech. PSYCHIATRIC: Appropriate mood and affect; insight and judgment normal. Data Data Last Documented VS Vital Signs Date Time Temp Pulse Resp B/P (MAP) Pulse Ox O2 Delivery O2 Flow Rate FiO2 05/13/17 07:56 98.4 98 16 183/109 (133) 98 Orders Orders Group A Rapid Strep Screen (05/13/17 08:10) Influenzae A/B Antigen (05/13/17 08:10) Strep Culture (Group A) (05/13/17 08:15) MDM Medical Decision Making Medical Screen Exam Complete: Yes Emergency Medical Condition: Yes Medical Record Reviewed: Yes Differential Diagnosis URI versus influenza versus strep pharyngitis Narrative Course She is negative for influenza and strep. At this point, my plan would be to release her with symptomatic treatment and follow-up to primary care doctor. Return for any worsening in symptoms as necessary. The plan has been discussed with her and she states understanding. Diagnosis Primary Impression: Viral syndrome Med/Other Pt SpecificInfo: Prescription(s) given Scripts Benzonatate (Tessalon Perles) 100 Mg Cap 100 MG PO TID Y for COUGH, #15 CAP 0 Refills Prov: Chayo Beard MD 05/13/17 Ibuprofen (Ibuprofen) 600 Mg Tab 600 MG PO Q6H Y for Pain/Inflammation, #20 TAB 0 Refills Prov: Chayo Beard MD 05/13/17 Disposition: 01 DISCHARGE HOME Condition: Stable Chayo Beard MD May 13, 2017 08:13
[2017-05-13] MEDS ORDERED: IBUP-232 PO (08:48)
[2017-05-13] MEDS ORDERED: BENZ100 PO (08:48)
== END 2017-05-13 08:56 | disposition home or self-care (01) ==
LOC: PHED 07:52
DX: B34.9 Viral infection, unspecified (principal); K21.9 Gastro-esophageal reflux disease without esophagitis
CPT/HCPCS: 87081; 87804; 87880; 99283

== ENCOUNTER 2017-07-17 16:30 | Emergency (ER) | payer SELFPAY ==
[~2017-07-17] VITALS: Ht 154.9 cm; Wt 178.8 kg
[~2017-07-17 16:30] MED LIST changes: +BENZ100 PO; +IBUP-232 PO
[2017-07-17 16:35] VITALS: BP 144/95; PULSE 63; RESP 18; TEMP 98; O2SAT 96
--- NOTE | 2017-07-17 18:28 | PD ---
HPI Chief Complaint: Cold / Flu Symptoms Time Seen by Provider: 17:52 Travel History International Travel<30 days: No Contact w/Intl Traveler<30days: No Traveled to known affect area: No History of Present Illness HPI 32-year-old female presents to the emergency room for evaluation of flulike symptoms that started 2 days ago. Symptoms started with full body aches. She developed a migraine yesterday that is worse when she coughs or gets up too quickly. She has associated nausea and vomiting. She began to have diarrhea yesterday. She has nonproductive cough, sore throat, and left ear pain. Denies significant nasal congestion. She had a fever of 102.1 yesterday. She has been taking [id number] Excedrin migraine for her headache and fever. States it does not really seem to help. She has multiple sick family contacts. No chronic medical conditions or daily medications other than migraines. PFSH Past Medical History Heart Rhythm Problems: No Cardiovascular Problems: No Diabetes: No Diminished Hearing: No Gastrointestinal Disorders: Yes (Enlarged liver on US 09/28/16) GERD: Yes Headaches: Yes Musculoskeletal: Yes Neurologic: No Reproductive: Yes (Mastitis age 17 ) Respiratory: No Immunizations Current: No Migraines: Yes Tetanus Vaccination: > 5 Years Influenza Vaccination: Yes ?: Not LMP: NOW : 0 Para: 0 Past Surgical History Cholecystectomy: Yes Oral Surgery: Yes (As child ) Other Surgery: No Social History Alcohol Use: Yes (VERY RARE) Tobacco Use: Yes (1/2 PPD) Substance Use: No Allergies-Medications (Allergen,Severity, Reaction): Coded Allergies: Sulfa (Sulfonamide Antibiotics) (Unverified Allergy, Severe, Swelling, rash , 07/17/17) Reported Meds & Prescriptions Reported Meds & Active Scripts Active Tessalon Perles (Benzonatate) 100 Mg Cap 100 Mg PO TID PRN Zofran (Ondansetron HCl) 4 Mg Tab 4 Mg PO Q6HR PRN Review of Systems Except as stated in HPI: all other systems reviewed are Neg Physical Exam Narrative GENERAL: Well-nourished, morbidly obese female no acute distress. Afebrile. Ambulatory. SKIN: Focused skin assessment warm/dry. HEAD: Normocephalic. EYES: No scleral icterus. No injection or drainage. NECK: Supple, trachea midline. No JVD or lymphadenopathy. ENT: Mucosa pink and moist. Mild to moderate erythema without exudates. No uvular edema. No uvular, palatal, or tonsillar deviation. Airway patent. Nasal turbinates appear normal without nasal blood, purulent drainage or septal hematoma. EARS: Bilateral pinnae and external canals appear within normal limits. Bilateral tympanic membranes without erythema, dullness or perforation. CARDIOVASCULAR: Regular rate and rhythm without murmurs, gallops, or rubs. RESPIRATORY: Breath sounds equal bilaterally. No accessory muscle use. No crackles, rales, wheezes, or rhonchi. GASTROINTESTINAL: Abdomen soft, non-tender, nondistended. Data Data Last Documented VS Vital Signs Date Time Temp Pulse Resp B/P (MAP) Pulse Ox O2 Delivery O2 Flow Rate FiO2 07/17/17 17:13 Room Air 07/17/17 16:35 98.0 63 18 144/95 (111) 96 Orders Orders Influenzae A/B Antigen (07/17/17 17:47) Ed Discharge Order (07/17/17 18:35) MDM Medical Decision Making Medical Screen Exam Complete: Yes Emergency Medical Condition: Yes Medical Record Reviewed: Yes Differential Diagnosis Gastroenteritis, URI, viral syndrome, influenza Narrative Course 32-year-old female presents to the emergency room for evaluation of flulike symptoms that started 2 days ago. Symptoms include body aches, fever of 102, nausea, vomiting, diarrhea, sore throat, and nonproductive cough. Physical exam is unremarkable. Vital signs stable. Abdomen soft, nontender. Patient is laughing during abdominal examination. Lung sounds clear and equal bilaterally. No evidence of strep or otitis media. Rapid influenza is negative. Patient discharged with prescription for Zofran and told to follow- up with primary care physician or return for worsening symptoms. She understands and agrees to plan. Diagnosis Primary Impression: Viral syndrome Referrals: Primary Care Physician Additional Instructions: Rest and drink plenty of fluids. Take Zofran as directed, as needed for nausea. Take ibuprofen with food as directed, as needed for pain. Follow-up with a primary care physician. Return to the emergency room for worsening symptoms. Scripts Benzonatate (Tessalon Perles) 100 Mg Cap 100 MG PO TID Y for COUGH, #15 CAP 0 Refills Prov: Zee Medina DO 07/17/17 Ondansetron (Zofran) 4 Mg Tab 4 MG PO Q6HR Y for NAUSEA OR VOMITING, #12 TAB 0 Refills Prov: Zee Medina 07/17/17 Disposition: 01 DISCHARGE HOME Condition: Stable Valeri Harmon Jul 17, 2017 18:28
[2017-07-17] MEDS ORDERED: ZOFR4TAB PO (18:34)
[2017-07-17] MEDS ORDERED: BENZ100 PO (18:34)
== END 2017-07-17 18:48 | disposition home or self-care (01) ==
LOC: PHED 16:30 → PHEFT 18:48
DX: B34.9 Viral infection, unspecified (principal); K21.9 Gastro-esophageal reflux disease without esophagitis; F17.210 Nicotine dependence, cigarettes, uncomplicated; Z88.2 Allergy status to sulfonamides
CPT/HCPCS: 87804; 99283

== ENCOUNTER 2017-09-10 22:22 | Emergency (ER) | payer SELFPAY ==
[~2017-09-10] VITALS: Ht 154.9 cm; Wt 175.0 kg
[~2017-09-10 22:22] MED LIST changes: -IBUP-232 PO; -PROM25TA10 PO; +ZOFR4TAB PO; -ZOFR8TAB PO
[2017-09-10 22:31] VITALS: BP 185/102; PULSE 74; RESP 18; TEMP 99; O2SAT 98
[2017-09-10] MEDS ORDERED: IBUP1TAB5 PO (22:36)
[2017-09-10] MEDS ORDERED: TYLE325T PO (22:36)
[2017-09-11] MEDS ORDERED: PENICILLIN V POTASSIUM 500 MG TAB PO ONE
[2017-09-11] MEDS ORDERED: ACETAMINOPHEN/HYDROcodone 325 MG/5 MG TAB PO ONE
[2017-09-11] MEDS ORDERED: PENI500T PO
--- NOTE | 2017-09-11 | PD ---
HPI Chief Complaint: Oral / Dental Pain or Problem Time Seen by Provider: 23:43 Travel History International Travel<30 days: No Contact w/Intl Traveler<30days: No Traveled to known affect area: No History of Present Illness HPI 32-year-old female complains of left lower dentalgia. She has had it for 2 days. Fever reported today 102.7. She took Advil and Tylenol every 4 hours which helped with the pain and with the fever. She has an appointment with a dentist in 2 days. PFSH Past Medical History Heart Rhythm Problems: No Cardiovascular Problems: No Diabetes: No Diminished Hearing: No Gastrointestinal Disorders: Yes (Enlarged liver on US 09/28/16) GERD: Yes Headaches: Yes Musculoskeletal: Yes Neurologic: No Reproductive: Yes (Mastitis age 17 ) Respiratory: No Immunizations Current: No Migraines: Yes Influenza Vaccination: No ?: Not LMP: 09/01/17 : 0 Para: 0 Past Surgical History Cholecystectomy: Yes Oral Surgery: Yes (As child ) Other Surgery: No Social History Alcohol Use: Yes (VERY RARE) Tobacco Use: Yes (1/2 PPD) Substance Use: No Allergies-Medications (Allergen,Severity, Reaction): Coded Allergies: Sulfa (Sulfonamide Antibiotics) (Unverified Allergy, Severe, Swelling, rash , 09/10/17) Reported Meds & Prescriptions Reported Meds & Active Scripts Active Penicillin V Potassium 500 Mg Tab 500 Mg PO Q8H 7 Days Reported Tylenol (Acetaminophen) 325 Mg Tab 650 Mg PO Q4H PRN Ibuprofen 400 Mg Tab 400 Mg PO Q6H PRN Review of Systems General / Constitutional: Positive: Fever HENT: No: Lightheadedness Cardiovascular: No: Chest Pain or Discomfort, Irregular Rhythm Respiratory: No: Cough Gastrointestinal: No: Diarrhea Genitourinary: No: Nocturia Physical Exam Narrative GENERAL: 32 yo F, NAD, WNWD DENTITION: Extensive decay along left lower dentition. TTP #18. SKIN: Warm and dry. HEAD: Normocephalic. EYES: No scleral icterus. No injection or drainage. NECK: Supple, trachea midline. No JVD or lymphadenopathy. CARDIOVASCULAR: Regular rate and rhythm without murmurs, gallops. Data Data Last Documented VS Vital Signs Date Time Temp Pulse Resp B/P (MAP) Pulse Ox O2 Delivery O2 Flow Rate FiO2 09/10/17 22:31 99.0 74 18 185/102 (129) 98 Orders Orders Ed Discharge Order (09/10/17 23:58) Penicillin V Potassium (Veetids) (09/11/17 00:00) Acetamin-Hydrocod 325-5 Mg (Salcha 5-325 (09/11/17 00:00) MDM Medical Decision Making Medical Screen Exam Complete: Yes Emergency Medical Condition: Yes Medical Record Reviewed: Yes Differential Diagnosis Dental fracture, dental caries, abscess Narrative Course PENVK script follow up with dentist in two days as scheduled Diagnosis Primary Impression: Infected dental carries Referrals: Dentist 2 days Med/Other Pt SpecificInfo: Prescription(s) given Scripts Penicillin V Potassium (Penicillin V Potassium) 500 Mg Tab 500 MG PO Q8H for Infection for 7 Days, #21 TAB 0 Refills Prov: Shane Morrell MD 09/11/17 Disposition: 01 DISCHARGE HOME Condition: Stable Shane Morrell MD Sep 11, 2017 00:00
[2017-09-11 00:44] VITALS: BP 160/88; PULSE 74; RESP 18; O2SAT 97
== END 2017-09-11 00:47 | disposition home or self-care (01) ==
LOC: PHED 22:22
DX: K02.9 Dental caries, unspecified (principal); K04.7 Periapical abscess without sinus; F17.200 Nicotine dependence, unspecified, uncomplicated
CPT/HCPCS: 99283

== ENCOUNTER 2017-10-21 19:02 | Emergency (ER) | payer SELFPAY ==
[~2017-10-21] VITALS: Ht 154.9 cm; Wt 173.7 kg
[~2017-10-21 19:02] MED LIST changes: -BENZ100 PO; +IBUP1TAB5 PO; +PENI500T PO; +TYLE325T PO; -ZOFR4TAB PO
[2017-10-21 19:13] VITALS: BP 177/102; PULSE 78; RESP 20; TEMP 98; O2SAT 99
[2017-10-21 19:35] VITALS: BP 128/60; PULSE 92; RESP 16; O2SAT 99
--- NOTE | 2017-10-21 19:35 | PD ---
HPI Chief Complaint: Abdominal Pain Time Seen by Provider: 19:34 Travel History International Travel<30 days: No Contact w/Intl Traveler<30days: No Traveled to known affect area: No History of Present Illness HPI Patient comes in complaining of right upper quadrant area pain, 8 out of 10,, and radiated back to the shoulder blade, was intermittent 3 days ago, however it has become persistent over the past 4-6 hours, associated with nausea but without any vomiting or diarrhea. Patient also denies any fever, rash, chest pain, cough, sore throat, not on any control pills, and patient denies any shortness of breath. States allergy to sulfa Past medical history significant for migraine, cholecystectomy, GERD, half pack a day smoker PFSH Past Medical History Heart Rhythm Problems: No Cardiovascular Problems: No Diabetes: No Diminished Hearing: No Gastrointestinal Disorders: Yes (Enlarged liver on US 09/28/16) GERD: Yes Headaches: Yes Musculoskeletal: Yes Neurologic: No Reproductive: Yes (Mastitis age 17 ) Respiratory: No Immunizations Current: No Migraines: Yes ?: Not LMP: on month : 0 Para: 0 Past Surgical History Cholecystectomy: Yes Oral Surgery: Yes (As child ) Other Surgery: No Social History Alcohol Use: Yes (VERY RARE) Tobacco Use: Yes (1/2 PPD) Substance Use: No Allergies-Medications (Allergen,Severity, Reaction): Coded Allergies: Sulfa (Sulfonamide Antibiotics) (Unverified Allergy, Severe, Swelling, rash , 10/21/17) Reported Meds & Prescriptions Reported Meds & Active Scripts Active Zofran Odt (Ondansetron Odt) 4 Mg Tab 4 Mg SL Q6HR PRN Reported Ibuprofen 400 Mg Tab 400 Mg PO Q6H PRN Review of Systems General / Constitutional: No: Fever Eyes: No: Visual changes HENT: No: Headaches Cardiovascular: No: Chest Pain or Discomfort Respiratory: No: Shortness of Breath Gastrointestinal: Positive: Nausea, Abdominal Pain Genitourinary: No: Dysuria Musculoskeletal: No: Pain Skin: No Rash Neurologic: No: Weakness Psychiatric: No: Depression Endocrine: No: Polydipsia Hematologic/Lymphatic: No: Easy Bruising Physical Exam Narrative GENERAL: SKIN: Warm and dry. HEAD: Atraumatic. Normocephalic. EYES: Pupils equal and round. No scleral icterus. No injection or drainage. ENT: No nasal bleeding or discharge. Mucous membranes pink and moist. NECK: Trachea midline. No JVD. CARDIOVASCULAR: Regular rate and rhythm. RESPIRATORY: No accessory muscle use. Clear to auscultation. Breath sounds equal bilaterally. GASTROINTESTINAL: Morbidly obese abdomen soft, mild tenderness to palpation of the EPIG REGION , nondistended. MUSCULOSKELETAL: Extremities without clubbing, cyanosis, or edema. No obvious deformities. NEUROLOGICAL: Awake and alert. No obvious cranial nerve deficits. Motor grossly within normal limits. Five out of 5 muscle strength in the arms and legs. Normal speech. PSYCHIATRIC: Appropriate mood and affect; insight and judgment normal. Data Data Last Documented VS Vital Signs Date Time Temp Pulse Resp B/P (MAP) Pulse Ox O2 Delivery O2 Flow Rate FiO2 10/21/17 19:35 92 16 128/60 (82) 99 Room Air 10/21/17 19:13 98.0 Orders Orders Ed Urine Pregnancytest Poc (10/21/17 19:37) Complete Blood Count With Diff (10/21/17 19:49) Comprehensive Metabolic Panel (10/21/17 19:49) Lipase (10/21/17 19:49) Urinalysis - C+S If Indicated (10/21/17 19:49) Ct Abd/Pel W/O Iv Contrast (10/21/17 19:49) Iv Access Insert/Monitor (10/21/17 19:49) Ecg Monitoring (10/21/17 19:49) Oximetry (10/21/17 19:49) NPO (10/21/17 19:49) Morphine Inj (Morphine Inj) (10/21/17 20:00) Sodium Chloride 0.9% Flush (Ns Flush) (10/21/17 20:00) Ondansetron Odt (Zofran Odt) (10/21/17 20:00) Labs Laboratory Tests Test 10/21/17 20:00 10/21/17 20:15 Urine Collection Type Urine Color YELLOW Urine Turbidity SL CLOUDY Urine pH 5.5 Urine Specific Many GREATER/EQUAL 1.030 Urine Protein NEG mg/dL Urine Glucose (UA) NEG mg/dL Urine Ketones NEG mg/dL Urine Occult Blood LARGE Urine Nitrite NEG Urine Bilirubin NEG Urine Urobilinogen 0.2 MG/DL Urine Leukocyte Esterase TRACE Urine RBC 0-3 /hpf Urine WBC 3-5 /hpf Urine Squamous Epithelial Cells 0-5 /hpf Urine Bacteria FEW /hpf Microscopic Urinalysis Comment CULT NOT INDICATED White Blood Count 14.0 TH/MM3 Red Blood Count 4.99 MIL/MM3 Hemoglobin 13.1 GM/DL Hematocrit 41.5 % Mean Corpuscular Volume 83.1 FL Mean Corpuscular Hemoglobin 26.3 PG Mean Corpuscular Hemoglobin Concent 31.7 % Red Cell Distribution Width 13.1 % Platelet Count 382 TH/MM3 Mean Platelet Volume 7.7 FL Neutrophils (%) (Auto) 59.6 % Lymphocytes (%) (Auto) 25.5 % Monocytes (%) (Auto) 5.3 % Eosinophils (%) (Auto) 4.7 % Basophils (%) (Auto) 4.9 % Neutrophils # (Auto) 8.3 TH/MM3 Lymphocytes # (Auto) 3.6 TH/MM3 Monocytes # (Auto) 0.7 TH/MM3 Eosinophils # (Auto) 0.7 TH/MM3 Basophils # (Auto) 0.7 TH/MM3 CBC Comment DIFF FINAL Differential Comment Blood Urea Nitrogen 9 MG/DL Creatinine 0.72 MG/DL Random Glucose 74 MG/DL Total Protein 7.5 GM/DL Albumin 3.4 GM/DL Calcium Level 8.7 MG/DL Alkaline Phosphatase 60 U/L Aspartate Amino Transf (AST/SGOT) 16 U/L Alanine Aminotransferase (ALT/SGPT) 21 U/L Total Bilirubin 0.3 MG/DL Sodium Level 139 MEQ/L Potassium Level 3.7 MEQ/L Chloride Level 109 MEQ/L Carbon Dioxide Level 23.3 MEQ/L Anion Gap 7 MEQ/L Estimat Glomerular Filtration Rate 95 ML/MIN Lipase 71 U/L [facility] Medical Decision Making Medical Screen Exam Complete: Yes Emergency Medical Condition: Yes Medical Record Reviewed: Yes Differential Diagnosis Colitis versus diverticulitis versus appendicitis versus gastroenteritis postcholecystectomy biliary obstruction versus kidney stone versus pyelonephritis Narrative Course CBC reveals a reactive leukocytosis of 14,000 without any major left shift, no evidence of anemia, normal platelet count noted UA is not consistent with a UTI, however there is some large amount of occult blood which may suggest you very partial cystitis versus kidney stone Electrolytes are all within normal limits, normal kidney liver and pancreatic functions CT abdomen and pelvis read by radiologist as no acute findings on noncontrast abdomen and pelvic CT previous cholecystectomy and a small hiatal hernia Diagnosis Primary Impression: Symptomatic hiatal hernia Additional Impression: Cystitis Patient Instructions: General Instructions, Hiatal Hernia (ED), Urinary Tract Infection in Women (DC) Scripts Nitrofurantoin Monohydrate Macrocrystals (Macrobid) 100 Mg Capsule 100 MG PO BID for Infection for 7 Days, #14 CAP 0 Refills Prov: Miguel Morales MD 10/21/17 Ondansetron Odt (Zofran Odt) 4 Mg Tab 4 MG SL Q6HR Y for Nausea/Vomiting, #20 TAB 0 Refills Prov: Miguel Moarles MD 10/21/17 Disposition: 01 DISCHARGE HOME Condition: Stable Miguel Morales MD Oct 21, 2017 19:35
[2017-10-21] MEDS ORDERED: ZOFR4TAB3 SL (19:39)
[2017-10-21] MEDS ORDERED: MORPHINE SULFATE 4 MG/ML INJ IV PUSH ONE (20:00)
[2017-10-21] MEDS ORDERED: SODIUM CHLORIDE 0.9% FLUSH 10 ML FLUSH IV FLUSH PRN (20:00)
[2017-10-21] MEDS ORDERED: ONDANSETRON ODT 4 MG TAB PO ONE (20:00)
[2017-10-21 20:21] LABS: AUTOMATED NEUTROPHIL # 8.3 TH/MM3 (1.8-7.7); BASOPHIL # 0.7 TH/MM3 (0-0.2); BASOPHIL % 4.9 % (0.0-2.0); EOSINOPHIL # 0.7 TH/MM3 (0-0.4); EOSINOPHIL % 4.7 % (0.0-4.0); HEMATOCRIT 41.5 % (35.0-46.0); HEMOGLOBIN 13.1 GM/DL (11.6-15.3); LYMPH % 25.5 % (9.0-44.0); LYMPHOCYTE # 3.6 TH/MM3 (1.0-4.8); MEAN CELL VOLUME 83.1 FL (80.0-100.0); MEAN CORPUSCULAR HEMOGLOBIN 26.3 PG (27.0-34.0); MEAN CORPUSCULAR HGB CONC 31.7 % (32.0-36.0); MEAN PLATELET VOLUME 7.7 FL (7.0-11.0); MONO % 5.3 % (0.0-8.0); MONOCYTE # 0.7 TH/MM3 (0-0.9); NEUT % 59.6 % (16.0-70.0); PLATELET COUNT 382 TH/MM3 (150-450); RED BLOOD COUNT 4.99 MIL/MM3 (4.00-5.30); RED CELL DISTRIBUTION WIDTH 13.1 % (11.6-17.2)
[2017-10-21 20:22] LABS: BILIRUBIN, URINE NEG (NEG); BLOOD, URINE LARGE (NEG); GLUCOSE,URINE NEG (NEG); KETONE, URINE NEG (NEG); NITRITE,URINE NEG (NEG); PH, URINE 5.5 (5.0-8.5); URINE COLOR YELLOW (YELLW/STRAW); URINE LEUKOCYTE ESTERASE TRACE (NEG)
[2017-10-21 20:28] LABS: CHLORIDE 109 MEQ/L (98-107); SODIUM (NA) 139 MEQ/L (136-145)
[2017-10-21 20:31] LABS: BACTERIA, URINE FEW /hpf; RBC, URINE 0-3 /hpf (0-3); SQUAMOUS EPITHELIAL CELL URINE 0-5 /hpf (0-5)
[2017-10-21 20:32] LABS: ALBUMIN 3.4 GM/DL (3.4-5.0); BICARBONATE 23.3 MEQ/L (21.0-32.0); BLOOD UREA NITROGEN 9 MG/DL (7-18); CALCIUM 8.7 MG/DL (8.5-10.1); GLUCOSE,RANDOM 74 MG/DL (74-106)
[2017-10-21 20:35] LABS: ALT (GPT) 21 U/L (10-53); AST (GOT) 16 U/L (15-37); CREATININE 0.72 MG/DL (0.50-1.00); GLOMERULAR FILTRATION RATE 95 ML/MIN (>89)
[2017-10-21 20:37] LABS: TOTAL BILIRUBIN ADULT 0.3 MG/DL (0.2-1.0); TOTAL PROTEIN 7.5 GM/DL (6.4-8.2)
[2017-10-21 20:38] LABS: ALKALINE PHOSPHATASE 60 U/L (45-117)
--- NOTE | 2017-10-21 21:11 | RADRPT ---
EXAM DATE: 10/21/2017 8:53 PM EDT AGE/SEX: 32 years / Female INDICATIONS: Bilateral upper quadrant pain radiating into back. CLINICAL DATA: This is the patient's initial encounter. Patient reports that signs and symptoms have been present for 3 days and indicates a pain score of 6/10. MEDICAL/SURGICAL HISTORY: Gastroesophageal reflux disease. Cholecystectomy. RADIATION DOSE: 26.33 CTDI (mGy) ; Patient body habitus COMPARISON: No prior [facility] exams available for comparison. TECHNIQUE: Multiple contiguous axial images were obtained through the abdomen. Images were obtained using multiple row detector helical technique. Using dose reduction techniques, radiation dose was ke pt as low as reasonably achievable to obtain optimal diagnostic quality images. FINDINGS: Lung bases are clear. No acute findings in the liver, spleen, adrenals, kidneys or pancreas. Postoperative cholecystectomy. No free fluid. No bowel obstruction. No adenopathy. No acute bony abnormalities. CONCLUSION: 1. No acute findings on noncontrast abdomen and pelvic CT. Previous cholecystectomy. Small hiatal he rnia. Electronically signed by: Kole Gonzales MD 10/21/2017 9:10 PM EDT
[2017-10-21] MEDS ORDERED: MACR100C2 PO (21:30)
[2017-10-21] MEDS ORDERED: LEVS0.124 SL (21:38)
[2017-10-21 21:52] VITALS: BP 132/78
== END 2017-10-21 21:54 | disposition home or self-care (01) ==
LOC: PHED 19:02
DX: K44.9 Diaphragmatic hernia without obstruction or gangrene (principal); N30.90 Cystitis, unspecified without hematuria; K21.9 Gastro-esophageal reflux disease without esophagitis; F17.200 Nicotine dependence, unspecified, uncomplicated
CPT/HCPCS: 74176; 80053; 81001; 83690; 84703; 85025; 96374; 99284; J2270